=== PATIENT | male | born 1960 | race Caucasian/White ===

== ENCOUNTER 2024-02-06 12:19 | Emergency (ER) | payer OTHER, SELFPAY ==
--- NOTE | 2024-02-06 12:26 | US_ITS ---
WS: [id number] TESTICULAR ULTRASOUND HISTORY: testicle swelling COMPARISON: None available. TECHNIQUE: Real-time and color Doppler imaging or utilized to perform a testicular ultrasound. Right testicle: 3.1 cm x 3.8 cm x 2.5 cm. Normal size and echogenicity. No mass or torsion. Normal color Doppler is present throughout. Systolic and diastolic velocities are both present. Small simple hydrocele. Right epididymis: Markedly enlarged heterogeneous epididymis. There is marked increased vascularity t hroughout the epididymis. Left testicle: 2.9 cm x 3.9 cm x 2.1 cm. Normal size and echogenicity. No mass or torsion. Normal color Doppler is present throughout. Systolic and diastolic velocities are both present. No significant hydrocele. Left epididymis: Normal epididymis with no increased vascularity. US/US scrotum [id number] IMPRESSION: 1. Marked acute RIGHT epididymitis. 2. No testicular mass or torsion.
[2024-02-06 12:48] VITALS: BP 156/74; PULSE 93; RESP 18; TEMP 36.7; O2SAT 96; BMI 32.9
[2024-02-06 12:51] VITALS: BP 137/79; PULSE 57; RESP 18; O2SAT 97
[2024-02-06 13:33] LABS: Add Urine Microscopic? YES; Bilirubin Urine Neg (Negative); Blood Urine 2+ (Negative); Glucose Urine UA Norm (Normal); Ketones Urine Negative (Negative); Leukocyte Esterase Urine 2+ (Negative); Nitrate Urine Positive (Negative); Protein Urine Neg (Negative); Specific Gravity, Urine 1.015 (1.005-1.030); Urine Appearance Cloudy (CLEAR); Urine Color Yellow (Yellow); Urobilinogen Urine Norm (Negative); pH Urine 6 (5-7)
[2024-02-06 13:44] LABS: Add Urine Culture? Yes; Bacteria Urine 1+ /hpf; Squamous Epithelial Cell Urine 0-4 /hpf (0-5); WBC Urine >100 /hpf (0-5)
--- NOTE | 2024-02-06 13:45 | W.ED.MALEGU ---
HPI - Male Genitourinary General: Chief complaint: Urogenital-Male Stated complaint: [facility], burning when urinating, swollen testicles Time Seen by Provider: 02/06/24 12:58 Source: patient Mode of arrival: ambulatory Limitations: no limitations History of Present Illness: 63-year-old male states he had dysuria for the last 4 to 5 days that has been having swelling and right testicle pain for the last 2 days. States that it feels like he is peeing needles when he urinates. Denies any fever denies any vomiting or diarrhea. Associated symptoms: Reports dysuria; Deny nausea or vomiting Review of Systems Const: Denies: fever(s), chills, body aches or change in appetite ENMT: Denies: throat pain or dental pain Card: Denies: chest pain Resp: Denies: dyspnea GI: Denies: abdominal pain, nausea, vomiting or diarrhea : Reports: dysuria and testicular pain Musc: Denies: neck pain or back pain Skin/Breast: Denies: rash Neuro: Denies: headache(s) Physical Exam Const: COMMON NORMALS: no acute distress, patient oriented x3 and healthy appearing HENMT: COMMON NORMALS: normocephalic and atraumatic HEAD & SCALP: normocephalic and atraumatic Neck/C-Spine: COMMON NORMALS: full ROM and supple Chest: COMMONS NORMALS: normal inspection of the chest Resp: COMMON NORMALS: normal respiratory effort GI: COMMON NORMALS: Normal to inspection, nondistended, normoactive bowel sounds present, Soft to palpation, non-tender and no masses PALPATION: Yes Soft to palpation : OTHER: Right testicle swollen and tender to touch over the epididymis Extremity: COMMON NORMALS: normal to inspection and full ROM Neuro: COMMON NORMALS: patient oriented x3, moves all extremities and no focal motor deficits Psych: COMMON NORMALS: mental status grossly normal, Normal thought process present and cooperative THOUGHT PROCESS: Normal thought process present Skin: COMMON NORMALS: no rashes or lesions noted and no wounds GENERAL SKIN EXAM: no rashes or lesions noted Course Vital Signs: Vital signs: Vital Signs Temperature 98.1 F 02/06/24 12:48 Pulse Rate 57 L 02/06/24 12:51 Respiratory Rate 18 02/06/24 12:51 Blood Pressure 137/79 02/06/24 12:51 Pulse Oximetry 97 05/24/24 12:51 Oxygen Delivery Me thod Room Air 02/06/24 12:51 MDM - Male Medical Decision Making Patient presents here with testicle pain does have a epididymitis with a UTI we will start him on Levaquin we will get him urology follow-up he is return if worsening he understands agrees to plan Medical Records I reviewed the patient's medical records. Lab Data I reviewed the patient's lab results. Radiology Impressions Scrotum Ultrasound 02/06/24 12:26 IMPRESSION: 1. Marked acute RIGHT epididymitis. 2. No testicular mass or torsion. Laboratory Results Urine Color Yellow (Yellow) 02/06/24 13:25 Urine Appearance Cloudy (CLEAR) A 02/06/24 13:25 Urine pH 6 (5-7) 02/06/24 13:25 Ur Specific [place] 1.015 (1.005-1.030) 02/06/24 13:25 Urine Protein Neg (Negative) 02/06/24 13:25 Urine Glucose (UA) Norm (Normal) 02/06/24 13:25 Urine Ketones Negative (Negative) 02/06/24 13:25 Urine Blood 2+ (Negative) H 02/06/24 13:25 Urine Nitrate Positive (Negative) H 02/06/24 13:25 Urine Bilirubin Neg (Negative) 02/06/24 13:25 Urine Urobilinogen Norm mg/dL (Negative) 02/06/24 13:25 Ur Leukocyte Esterase 2+ (Negative) H 02/06/24 13:25 Urine RBC None /hpf (0-2) 02/06/24 13:25 Urine WBC >100 /hpf (0-5) H 02/06/24 13:25 Ur Squamous Epith Cells 0-4 /hpf (0-5) H 02/06/24 13:25 Amorphous Sediment Not Reportable 02/06/24 13:25 Urine Bacteria 1+ /hpf (NONE) H 02/06/24 13:25 No radiology studies performed this visit Discharge Plan Discharge Patient Disposition: Home Clinical Impression: Epididymitis Condition: Stable Prescriptions: New levofloxacin 500 mg tablet 500 mg PO DAILY 10 Days Qty: 10 0RF hydrocodone-acetaminophen 5-325 mg tablet 1 tab PO Q6H PRN (Reason: pain) Qty: 14 0RF Discharge Orders: Discharge ED (Routine); Ordered 02/06/24 Ordered By: Serina Felipe Referrals: Rachel Perry MD [Primary Care Provider] - 1-3 days Discharge Diet: Advance as tolerated Discharge Activity: Use walker/crutches as instructed Patient Instructions: Epididymitis (ED), Opioid Safety Coding Level of Care Code ED [employer] Worker for Dennis Ladd
[2024-02-06] MEDS: levoFLOXacin 500 mg Tablet PO (13:49)
[2024-02-06 13:54] VITALS: BP 158/75; PULSE 90; O2SAT 95
--- NOTE | 2024-02-11 10:02 | PC.SOCIAL ---
Addendum entered by Oralia Adams RN 02/12/24 09:05: Belen at [facility] reports that the consult has been placed and they will call patient about his preference. Original Note: Urology Referral Spoke with patient about urology referral; [facility]. Records faxed to December at [facility] requesting that she arrange urology follow up for patient.
== END 2024-02-06 13:57 | disposition home or self-care (01) ==
PROVIDERS: Emergency Provider Emergency Medicine; PCP Family Medicine
DX: N45.1 Epididymitis (principal)
CPT/HCPCS: 76870; 81001; 87077; 87086; 87186; 99284

== ENCOUNTER 2025-05-17 10:02 | Outpatient (CLI) | payer OTHER, SELFPAY ==
[2025-05-17 10:49] LABS: Hematocrit 42.6 % (37-53); Hemoglobin 13.80 g/dL (11.27-16.99); Mean Corpuscular HGB Conc 32.4 g/dL (30-55); Mean Corpuscular Hemoglobin 28.7 pg (27-33); Mean Corpuscular Volume 88.6 fl (82-101); Nucleated Red Blood Cells % 0 %; Platelet Count 175 10^3/cmm (157-399); Red Blood Count 4.81 10^6/uL (3.85-5.65); White Blood Count 8.94 10^3/uL (3.29-11.43)
[2025-05-17 11:07] LABS: Anion Gap 18.2 (5-19); Blood Urea Nitrogen 17 mg/dL (8-23); Calcium 9.9 mg/dL (8.5-10.5); Carbon Dioxide 24 mmol/L (22-29); Chloride 100 mmol/L (98-107); Glucose 147 mg/dL (65-115); Osmolality Calculated 290 mOsm/kg (285-295); Potassium 4.2 mmol/L (3.5-5.1); Sodium 138 mmol/L (136-145)
[2025-05-17 11:32] LABS: HIV 1 & 2 Antigen Non-Reactive (Non-Reactiv)
[2025-05-17 11:45] LABS: Hepatitis B Surface Antigen Non-Reactive (Nonreactive)
[2025-05-18 14:04] LABS: HEP C RNA Viral Load Quant <1.18 NOT DETECTED Log IU/mL (NOT DETECTED); HEP C RNA Viral Load Quant <15 NOT DETECTED IU/mL (NOT DETECTED)
== END 2025-05-17 10:03 | disposition home or self-care (01) ==
PROVIDERS: PCP Family Medicine; Visit Provider Nurse Practitioner Family
DX: L40.0 Psoriasis vulgaris (principal)
CPT/HCPCS: 11102; 36415; 80048; 85025; 86480; 86704; 86706; 86803; 87340; 87522; 87806; 99204